=== PATIENT | female | born 2000 | race Caucasian/White ===

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

== ENCOUNTER 2021-11-16 12:20 | Emergency (ER) | payer MEDICAID ==
[~2021-11-16] VITALS: Ht 165.1 cm; Wt 64.0 kg
[~2021-11-16 12:20] MED LIST: CIPR500T5 MT
[2021-11-16 13:24] LABS: CLARITY URINE CLEAR (CLEAR); COLOR URINE YELLOW (YELLOW); KETONES URINE TRACE (NEGATIVE); LEUKOCYTE ESTERASE URINE 1+ (NEGATIVE); NITRITE URINE NEGATIVE (NEGATIVE); OCCULT BLOOD URINE 3+ (NEGATIVE); PROTEIN URINE TRACE (NEGATIVE); SPECIFIC GRAVITY URINE 1.022 (1.005-1.030); UROBILINOGEN URINE 0.2 E.U./dL (0.2-1.0)
[2021-11-16 13:37] LABS: HEMATOCRIT. 37.3 % (36.0-48.0); HEMOGLOBIN. 12.5 g/dL (12.0-16.0); MEAN CORPUSCULAR HEMOGLOBIN 28.7 pg (28.0-32.0); MEAN CORPUSCULAR VOLUME 85.7 fL (81.0-99.0); MEAN PLATELET VOLUME 9.4 fl (7.4-10.4); PLATELET 234 x1000/uL (130-400); RED BLOOD CELL COUNT 4.35 mill/uL (4.2-5.4); RED CELL DISTRIBUTION WIDTH 13.7 % (11.6-14.6)
[2021-11-16 13:38] LABS: CHLORIDE 109 mEq/L (98-107)
[2021-11-16 14:11] LABS: HCG SCREEN NEGATIVE
[2021-11-16 14:14] LABS: PLATELET ESTIMATE NORMAL
[2021-11-16] MEDS ORDERED: ONDANSETRON HCL 4MG/2ML INJ IV STA (16:16)
[2021-11-16] MEDS ORDERED: KETOROLAC 30MG/ML VIAL IV STA (16:19)
[2021-11-16] MEDS ORDERED: SODIUM CHLORIDE 0.9% 1,000 ML IV ONE (16:30)
[2021-11-16] MEDS ORDERED: IBUP-2029 MT (19:14)
[2021-11-16] MEDS ORDERED: ONDA4TAB5 MT (19:14)
[2021-11-16] MEDS ORDERED: CIPR500S3 PO (19:14)
[2021-11-16] MEDS ORDERED: ACETAMINOPHEN WITH CODEINE 300/30MG TABLET PO ONE (19:15)
[2021-11-16 19:49] VITALS: BP 128/98
== END 2021-11-16 20:07 | disposition home or self-care (01) ==
LOC: ER 12:20
DX: K52.9 Noninfective gastroenteritis and colitis, unspecified (principal); N30.00 Acute cystitis without hematuria; F41.9 Anxiety disorder, unspecified
CPT/HCPCS: 36415; 74176; 80053; 81003; 81025; 83690; 84703; 85025; 87086; 96361; 96374; 96375; 99284; J1885; J2405; J7030

== ENCOUNTER 2022-05-26 17:42 | Emergency (ER) | payer MEDICAID ==
[~2022-05-26] VITALS: Ht 160 cm; Wt 62.0 kg
[~2022-05-26 17:42] MED LIST changes: +CIPR500S3 PO; +IBUP-2029 MT; +ONDA4TAB5 MT
[2022-05-26] MEDS ORDERED: ACETAMINOPHEN 325MG TABLET PO ONE (20:15)
[2022-05-26] MEDS ORDERED: IBUPROFEN 600MG TABLET PO NR (23:32)
[2022-05-26] MEDS ORDERED: NAPR-681 PO (23:39)
[2022-05-26] MEDS ORDERED: D-ME473S50 PO (23:39)
[2022-05-27 00:03] VITALS: BP 120/86
== END 2022-05-27 00:08 | disposition home or self-care (01) ==
LOC: ER 17:42
DX: J10.1 Influenza due to other identified influenza virus with other respiratory manifestations (principal); Z20.822 Contact with and (suspected) exposure to COVID-19
CPT/HCPCS: 71045; 81025; 87070; 87426; 87430; 87804; 99284; C9803